=== PATIENT | female | born 1975 | race Two or more races ===

== ENCOUNTER 2016-04-13 20:43 | Emergency (ER) | payer SELFPAY ==
[~2016-04-13] VITALS: Ht 162.6 cm; Wt 81.6 kg
--- NOTE | 2016-04-13 21:14 | PHYS DOC ---
Past Medical History Past Medical History: No Pertinent History Past Surgical History: Adult General Chief Complaint Chief Complaint: COUGH HPI HPI Patient is a 40 year old female who presents with cough, left chest pain. Patient reports since last Saturday she has been having cough and is developed sharp left-sided chest pain when she coughs. She denies shortness of breath. No fever. She has not taken anything for symptoms. No other acute complaints. Review of Systems Review of Systems Constitutional: Denies fever or chills Eyes: Denies change in visual acuity or eye pain HENT: Denies nasal congestion or sore throat Respiratory: Cough. Denies shortness of breath Cardiovascular: Sharp L chest pain GI: Denies abdominal pain, nausea, vomiting, bloody stools or diarrhea : Denies dysuria or hematuria Musculoskeletal: Denies back pain or joint pain Integument: Denies rash or skin lesions Neurologic: Denies headache, focal weakness or sensory changes Current Medications Current Medications Current Medications Medications (Trade) Dose Ordered Sig/Joseph Start Time Stop Time Status Last Admin Dose Admin Naproxen (Naprosyn) 500 mg 1X ONCE 04/13/16 21:15 04/13/16 21:16 DC 04/13/16 21:40 500 MG Allergies Allergies Allergies Coded Allergies Type Severity Reaction Last Updated Verified No Known Drug Allergies 04/13/16 No Physical Exam Physical Exam Constitutional: Well developed, well nourished, no acute distress, non-toxic appearance HENT: Normocephalic, atraumatic, bilateral external ears normal Eyes: EOMI, conjunctiva normal, no discharge Neck: Normal range of motion, no stridor Cardiovascular: Heart rate normal, regular rhythm, no murmur Lungs & Thorax: Bilateral breath sounds clear to auscultation; L chest wall TTP , no deformity or skin lesion noted Abdomen: Bowel sounds normal, soft, non-distended, no TTP Skin: Warm, dry, no erythema, no rash Extremities: No obvious deformity, no edema Neurologic: Alert and oriented X 3, no gross deficits noted Current Patient Data Vital Signs Vital Signs Date Time Temp Pulse Resp B/P Pulse Ox O2 Delivery O2 Flow Rate FiO2 04/13/16 23:04 72 19 124/76 98 Room Air 04/13/16 20:50 98.1 98.1 Lab Values Laboratory Tests Test 04/13/16 21:26 Troponin I Quantitative < 0.017ng/mL (0.000-0.055) EKG EKG EKG (my read): sinus rhythm, rate 74, normal axis, intervals wnl, no acute ischemic changes Radiology/Procedures Radiology/Procedures CXR (my read): No acute abnormality Course & Med Decision Making Course & Med Decision Making Pertinent Labs and Imaging studies reviewed. (See chart for details) Patient is 40-year-old female presents with cough, chest pain. Suspect costochondritis from frequent coughing, possibly due to upper respiratory infection. Will check EKG, chest x-ray, troponin. Dose of naproxen ordered for pain control. Troponin within normal limits, given duration of symptoms this is sufficient to rule out NE. EKG and chest x-ray okay per my read. Discussed results with patient, who is feeling better at this time. Will discharge home with prescription for Tessalon and naproxen, instructions for follow-up, return precautions. Dragon Disclaimer Dragon Disclaimer This electronic medical record was generated, in whole or in part, using a voice recognition dictation system. Departure Departure Impression: Primary Impression: URI (upper respiratory infection) Additional Impression: Chest wall pain Disposition: HOME, SELF-CARE Condition: IMPROVED Patient Instructions: Costochondritis, Upper Respiratory Infection, Adult Additional Instructions: Thank you for allowing us to provide care today in the Emergency Department. Take the provided medication as directed. Schedule a follow up appointment with your primary care doctor. Return promptly to the Emergency Department if you develop any new or concerning symptoms. Scripts Benzonatate (Tessalon Perle)100 Mg Capsule1 Cap PO TID PRN COUGH #15 CAP Prov:MARYLU GOODMAN MD 04/13/16 Naproxen 375 Mg [id number] Mg PO BID PRN PAIN #20 Prov:MARYLU GOODMAN MD 04/13/16 Problem Qualifiers MARYLU GOODMAN MD Apr 13, 2016 21:14
[2016-04-13] MEDS ORDERED: NAPROXEN 500 MG TABLET PO ONE (21:15)
[2016-04-13] MEDS ORDERED: BENZ100C PO (22:52)
[2016-04-13] MEDS ORDERED: NAPR375T3 PO (22:52)
[2016-04-13 23:04] VITALS: BP 124/76
--- NOTE | 2016-04-14 08:02 | EKG ---
[facility] [address] [place] [address] Test Date: 2016-04-13 Test Time: 21:24:34 Pat Name: ABENA RUDOLPH Department: Room: Gender: F Data Reporting Analyst: : 1975 Requested By: MARYLU GOODMAN Order Number: [id number] Reading MD: Lew Francisco Measurements Intervals [place] Rate: 74 P: 39 CO: 152 QRS: 38 QRSD: 78 T: 24 QT: 388 QTc: 436 Interpretive Statements SINUS RHYTHM RI6.01 Unconfirmed report No previous ECG available for comparison Electronically Signed On 04-16-2016 14:01:09 EDUCATIONAL SPECIALIST by Lew Francisco
--- NOTE | 2016-04-14 08:33 | RAD ---
EXAM: CHEST 2 VIEWS History: Left-sided chest pain COMPARISON: None available. TECHNIQUE: PA and lateral chest radiographs FINDINGS: The cardiomediastinal silhouette is within normal limits. The lungs are clear bilaterally. The costophrenic sulci are clear and well demarcated bilaterally. IMPRESSION: No radiographic evidence of an acute cardiopulmonary abnormality.
== END 2016-04-13 23:05 | disposition home or self-care (01) ==
LOC: ER 20:43
DX: J06.9 Acute upper respiratory infection, unspecified (principal); R07.89 Other chest pain
CPT/HCPCS: 36415; 71020; 84484; 93005; 99285-25

== ENCOUNTER → 2017-01-10 | Outpatient (CLI) | payer OTHER ==
[~2017-01-10] MED LIST: BENZ100C PO; NAPR-695 PO
--- NOTE | 2017-01-10 11:21 | RAD ---
CT head Indication:POSSIBLE SDH Technique: CT head without IV contrast Comparison: None Findings: No pathologic extra-axial or intra-axial fluid collection. No midline shift. The ventricles and basal cisterns are within normal limits. The echeverria-white differentiation is preserved. No acute intracranial bleed. Visualized orbits are within normal limits. No calvarial lesions. Visualized paranasal sinuses and mastoid air cells are clear. Impression: No intracranial process on this noncontrast CT. PQRS Compliance Statement: One or more of the following individualized dose reduction techniques were utilized for this examination: 1. Automated exposure control 2. Adjustment of the mA and/or kV according to patient size 3. Use of iterative reconstruction technique
== END | disposition home or self-care (01) ==
LOC: CT 10:53
DX: I62.00 Nontraumatic subdural hemorrhage, unspecified (principal)
CPT/HCPCS: 70450